=== PATIENT | female | born 1985 | race Caucasian/White ===

== ENCOUNTER 2018-12-03 16:53 | Observation (INO) | payer MEDICAID ==
[~2018-12-03] VITALS: Ht 165.1 cm; Wt 76.7 kg
[2018-12-03 18:10] LABS: CLARITY URINE CLEAR (CLEAR); COLOR URINE YELLOW (YELLOW); KETONES URINE NEGATIVE (NEGATIVE); LEUKOCYTE ESTERASE URINE NEGATIVE (NEGATIVE); NITRITE URINE NEGATIVE (NEGATIVE); OCCULT BLOOD URINE NEGATIVE (NEGATIVE); PH URINE 6.5 (4.5-8.0); PROTEIN URINE NEGATIVE (NEGATIVE); SPECIFIC GRAVITY URINE 1.005 (1.005-1.030); UROBILINOGEN URINE 0.2 E.U./dL (0.2-1.0)
[2018-12-03 18:16] LABS: CHLORIDE 107 mEq/L (98-107)
[2018-12-03 18:19] LABS: D-DIMER 2.33 mg/L FEU (<0.50); INR 0.9; PARTIAL THROMBOPLASTIN TIME 25.7 sec (23.4-31.0); PROTHROMBIN TIME 9.2 sec (9.1-11.1)
[2018-12-03 18:27] LABS: BASOPHILS % 0.2 % (0.0-2.0); EOSINOPHILS % 0.4 % (0.0-5.0); HEMATOCRIT. 31.3 % (36.0-48.0); HEMOGLOBIN. 10.7 g/dL (12.0-16.0); LYMPHOCYTES % 20.1 % (20.0-50.0); MEAN CORPUSCULAR HEMOGLOBIN 32.5 pg (28.0-32.0); MEAN CORPUSCULAR VOLUME 95.1 fL (81.0-99.0); MEAN PLATELET VOLUME 10.8 fl (7.4-10.4); MONOCYTES % 8.8 % (2.0-8.0); NEUTROPHILS % 70.5 % (40.0-76.0); PLATELET 204 x1000/uL (130-400); RED BLOOD CELL COUNT 3.29 mill/uL (4.2-5.4); RED CELL DISTRIBUTION WIDTH 13.2 % (11.6-14.6)
[2018-12-03] MEDS ORDERED: DIPHENHYDRAMINE 25MG CAPSULE PO NR (18:45)
[2018-12-03 18:47] LABS: HEPATITIS B SURFACE ANTIGEN NEGATIVE
[2018-12-03 19:16] LABS: HEPATITIS A AB IGM NEGATIVE (NEGATIVE)
== END 2018-12-03 18:55 | disposition home or self-care (01) ==
LOC: 8 EST LDRP 16:53
PROVIDERS: ADMIT Specialist; ATTEND Specialist
DX: O26.893 Other specified pregnancy related conditions, third trimester (principal); R10.30 Lower abdominal pain, unspecified; R21 Rash and other nonspecific skin eruption; Z3A.38 38 weeks gestation of pregnancy
CPT/HCPCS: 36415; 76815; 76818; 80053; 80076; 81003; 84550; 85025; 85379; 85384; 85610; 85730; 99281; G0378; 82248; 86705; 86709; 86803; 87340